=== PATIENT | male | born 1990 | race Caucasian/White ===

== ENCOUNTER → 2016-08-28 | Outpatient (REF) | payer BC | LOC: M LAB REF 16:22 | PROVIDERS: ATTEND Surgery | DX: K61.2 Anorectal abscess (principal); K61.0 Anal abscess ==

== ENCOUNTER → 2016-11-25 | Outpatient (REF) | payer BC ==
[~2016-11-25] MED LIST: CLIN150C14; EXCETAB80 PO; HYDR-3713; IBUP-1114 PO
== END ==
LOC: M SFHCPLAZ 11:41
PROVIDERS: ATTEND Family Medicine
DX: L02.215 Cutaneous abscess of perineum (principal)

== ENCOUNTER → 2017-01-06 | Outpatient (REF) | payer BC | LOC: M SFHCPLAZ 15:22 | PROVIDERS: ATTEND Family Medicine | DX: L02.215 Cutaneous abscess of perineum (principal) ==

== ENCOUNTER 2017-01-10 09:02 | Emergency (ER) | payer BC ==
[~2017-01-10] VITALS: Ht 167.6 cm; Wt 85.0 kg
[2017-01-10] MEDS ORDERED: CLIN150C14 (09:11)
[2017-01-10] MEDS ORDERED: EXCETAB80 PO (09:11)
[2017-01-10] MEDS ORDERED: IBUP-1114 PO (09:11)
[2017-01-10] MEDS ORDERED: HYDR-3713 (09:11)
[2017-01-10] MEDS ORDERED: diphenhydrAMINE INJ 50MG/ML VIAL (J1200) IV STA (10:29)
[2017-01-10] MEDS ORDERED: ONDANSETRON 4MG/2ML VIAL (J2405) IV ONE (10:30)
[2017-01-10] MEDS ORDERED: LR 1,000 ML IV ONE (10:30)
[2017-01-10] MEDS ORDERED: KETOROLAC 30 MG/ML VIAL (J1885) IV ONE (10:30)
[2017-01-10 10:36] LABS: MEAN CORPUSCULAR HGB CONC 33.9 g/dl (32.0-36.5); MEAN CORPUSCULAR VOLUME 94.4 fl (80.0-96.0); PLATELET COUNT, AUTOMATED 275 10^3/uL (150-450); RED CELL DISTRIBUTION WIDTH 11.9 % (11.5-14.5)
[2017-01-10 11:00] LABS: ALBUMIN 4.2 GM/DL (3.2-5.2); ALBUMIN/GLOBULIN RATIO 1.17 (1.00-1.93); ALKALINE PHOSPHATASE 68 U/L (45-117); ALT/SGPT 44 U/L (12-78); ANION GAP 7 MEQ/L (8-16); AST/SGOT 22 U/L (15-37); BILIRUBIN,TOTAL 0.5 MG/DL (0.2-1.0); BLOOD UREA NITROGEN 12 MG/DL (7-18); CALCIUM LEVEL 8.9 MG/DL (8.5-10.1); CARBON DIOXIDE LEVEL 30 MEQ/L (21-32); CHLORIDE LEVEL 101 MEQ/L (98-107); CREATININE FOR GFR 0.92 MG/DL (0.70-1.30); GLOMERULAR FILTRATION RATE > 60.0 (>60); GLUCOSE, FASTING 102 MG/DL (70-105); POTASSIUM SERUM 4.6 MEQ/L (3.5-5.1); SODIUM LEVEL 138 MEQ/L (136-145); TOTAL PROTEIN 7.8 GM/DL (6.4-8.2)
[2017-01-10 13:16] VITALS: BP 139/81
--- NOTE | 2017-01-10 14:47 | REP ---
CT of the brain without IV contrast: There are no comparisons. There is no hemorrhage. There is no edema, mass effect or midline shift. Ventricles are normal size and midline. Cortical stripe is unremarkable. Impression: Negative CT study of the brain. Signed by Jersey Fernandez MD 01/10/2017 11:45 A
== END 2017-01-10 13:17 | disposition home or self-care (01) ==
LOC: M ED 09:02
DX: R51 Headache (principal)
CPT/HCPCS: 70450; 80053; 83605; 85027; 87040; 96361; 96374; 96375; 99284; J1200; J1885; J2405

== ENCOUNTER → 2017-08-09 | Outpatient (CLI) | payer BC | LOC: M RAD 20:21 | DX: S49.92XA Unspecified injury of left shoulder and upper arm, initial encounter (principal); S50.02XA Contusion of left elbow, initial encounter; Y92.89 Other specified places as the place of occurrence of the external cause; Y93.89 Activity, other specified; Y99.8 Other external cause status; X58.XXXA Exposure to other specified factors, initial encounter | CPT/HCPCS: 73080 ==

== ENCOUNTER → 2018-06-29 | Outpatient (CLI) | payer OTHER ==
--- NOTE | 2018-06-29 19:04 | REP ---
Right ankle two views : There is no fracture or dislocation. Mineralization and joint spaces are normal. There are no calcifications or foreign bodies. Impression: Negative right ankle . Electronically Signed by Jersey Fernandez MD 06/29/2018 06:55 P
== END ==
LOC: M RAD 16:12
PROVIDERS: ATTEND Family Medicine
DX: K40.90 Unilateral inguinal hernia, without obstruction or gangrene, not specified as recurrent (principal); M25.571 Pain in right ankle and joints of right foot

== ENCOUNTER → 2018-07-06 | Outpatient (CLI) | payer OTHER ==
--- NOTE | 2018-07-06 11:58 | REP ---
Bilateral inguinal ultrasound for inguinal hernia: Both right and left inguinal areas are evaluated by ultrasound. Imaging is performed without and with Valsalva. There is no inguinal hernia on the right or the left. Impression: No ultrasound evidence of inguinal hernia on the right or the left. Electronically Signed by Jersey Fernandez MD 07/06/2018 11:50 A
== END ==
LOC: M RAD 08:53
PROVIDERS: ATTEND Family Medicine
DX: R10.30 Lower abdominal pain, unspecified (principal)

== ENCOUNTER → 2019-04-28 | Outpatient (CLI) | payer BC ==
--- NOTE | 2019-04-28 13:50 | REP ---
Scrotal sonography: History: Testicular pain. Findings: High-resolution bilateral scrotal sonography is performed. There is a very small left hydrocele noted incidentally. No intratesticular mass lesion is seen on either side. Right testis measures 4.3 x 2.2 x 3.0 cm. Left testicular dimensions are 4.3 x 2.5 x 3.0 cm. Normal Doppler flow is seen in both testes. Resistive indices are measured at 0.57 on the right and 0.55 on the left. Epididymal structures are unremarkable. Impression: Normal scrotal sonography. Electronically Signed by Saul Rios MD 05/02/2019 07:52 P
== END ==
LOC: M RAD 12:01
PROVIDERS: ATTEND Nurse Practitioner Women's Health
DX: N50.819 Testicular pain, unspecified (principal)

== ENCOUNTER 2019-06-09 06:41 | Emergency (ER) | payer BC ==
[~2019-06-09] VITALS: Ht 175.3 cm; Wt 67.1 kg
[2019-06-09] MEDS ORDERED: ERYT1OIN26 (06:48)
[2019-06-09] MEDS ORDERED: LIDOCAINE 1% MDV 20ML VIAL SC ONE (07:30)
[2019-06-09 07:53] LABS: BASO % 1.1 % (0.0-1.0); EOS # 0.1 10^3/uL (0.0-0.5); EOS % 2.4 % (0.0-3.0); HEMATOCRIT 41.7 % (42.0-52.0); HEMOGLOBIN 14.2 g/dl (13.5-17.5); LYMPH # 1.1 10^3/uL (1.5-5.0); MEAN CORPUSCULAR HEMOGLOBIN 33.1 pg (27.0-33.0); MEAN CORPUSCULAR HGB CONC 34.1 g/dl (32.0-36.5); MEAN CORPUSCULAR VOLUME 97.2 fl (80.0-96.0); MONO # 0.4 10^3/uL (0.0-0.8); MONO % 11.3 % (0.0-5.0); NEUTROPHILS # 2.1 10^3/uL (1.5-8.5); NEUTROPHILS % 54.9 % (36.0-66.0); PLATELET COUNT, AUTOMATED 349 10^3/uL (150-450); RED BLOOD COUNT 4.29 10^6/uL (4.30-6.10); WHITE BLOOD COUNT 3.8 10^3/uL (4.0-10.0)
--- NOTE | 2019-06-09 08:08 | REP ---
Chest x-ray: Two views. History: Abnormal breath sounds right lower lobe . Comparison study: July 10, 2013 . Findings: The lungs are well inflated and free of infiltrate. The pleural angles are sharp. The heart size is normal. Pulmonary vasculature is not increased. No significant bony abnormality is seen. Impression: Negative chest x-ray. Electronically Signed by Saul Rios MD 06/09/2019 08:00 A
[2019-06-09] MEDS ORDERED: KETOROLAC 60 MG/2 ML VIAL (J1885) IM ONE (08:15)
--- NOTE | 2019-06-09 08:18 | REP ---
CT study of the cervical spine without contrast: History: Vertebral tenderness, limited range of motion. Technique: Helical scanning is acquired and overlapping 2 mm high resolution axial images were generated and reviewed at bone and soft tissue window settings. Coronal and sagittal multiplanar re-formations images are generated. CT findings: There is no evidence of cervical spine element fracture. No skull base fracture is seen. Cervical vertebral body heights are preserved. Alignment is normal. Facet joints are normally aligned bilaterally at each cervical level on multiplanar re-formations images. There is no evidence of intraspinal or paraspinal hematoma. No extra vertebral abnormality is seen. There are biapical pulmonary parenchymal bullae. Impression: Negative CT study of the cervical spine without contrast. No fracture seen. Electronically Signed by Saul Rios MD 06/09/2019 08:10 A
[2019-06-09 08:22] VITALS: BP 130/71
[2019-06-09] MEDS ORDERED: CYCL10TA PO (08:23)
[2019-06-09] MEDS ORDERED: ACET-683 PO (08:37)
[2019-06-09] MEDS ORDERED: IBUP80TA PO (08:37)
== END 2019-06-09 08:56 | disposition home or self-care (01) ==
LOC: M ED 06:41
DX: M43.6 Torticollis (principal); R05 Cough
CPT/HCPCS: 20552; 36415; 71046; 72125; 85025; 87880; 96372; 99284; J1885

== ENCOUNTER → 2020-09-29 | Outpatient (CLI) | payer BC ==
[~2020-09-29] MED LIST changes: +ACET-683 PO; -CLIN150C14; +CLIN150C15; +CYCL-707 PO; +ERYT5OIN25; +IBUP80TA PO
--- NOTE | 2020-09-29 13:26 | REP ---
INDICATION: STRAIN OF MUSCLE, FASCIA AND TENDON AT NECK LEVEL, INIT COMPARISON: None. TECHNIQUE: AP, lateral, flexion/extension, bilateral oblique, and open-mouth views. FINDINGS: Alignment and lordosis is maintained. There is no evidence for acute fracture / compression injury or subluxation. Nonspecific age-related changes are appreciated without overt degenerative spondylosis noted. Oblique views demonstrate patent neural foramen. Open mouth view demonstrates normal C1-C2 articulation and odontoid process. IMPRESSION: Essentially age-appropriate cervical spine series. <Electronically signed by Ifeanyi Ramesh > 09/29/20 [id number]
== END ==
LOC: M LAB 12:23
PROVIDERS: ATTEND Physician Assistant
DX: S16.1XXA Strain of muscle, fascia and tendon at neck level, initial encounter (principal); X58.XXXA Exposure to other specified factors, initial encounter; Y92.89 Other specified places as the place of occurrence of the external cause; Y93.89 Activity, other specified; Y99.8 Other external cause status

== ENCOUNTER → 2021-03-12 | Outpatient (REF) | payer BC ==
[~2021-03-12] MED LIST changes: -CLIN150C15; +CLIN150C17
== END ==
LOC: M LAB REF 11:09
PROVIDERS: ATTEND Physician Assistant
DX: R50.9 Fever, unspecified (principal); R05.9 Cough, unspecified

== ENCOUNTER → 2021-06-26 | Outpatient (CLI) | payer BC | LOC: M RAD 13:23 | PROVIDERS: ATTEND Physician Assistant | DX: R07.9 Chest pain, unspecified (principal) ==

== ENCOUNTER → 2021-06-26 | Outpatient (REF) | payer BC | LOC: M LAB REF 15:04 | PROVIDERS: ATTEND Physician Assistant | DX: R50.9 Fever, unspecified (principal); R05.9 Cough, unspecified; R11.2 Nausea with vomiting, unspecified; R09.81 Nasal congestion ==

== ENCOUNTER 2021-10-05 19:23 | Emergency (ER) | payer BC ==
[~2021-10-05] VITALS: Ht 177.8 cm; Wt 68.2 kg
[2021-10-05] MEDS ORDERED: NS 1,000 ML IV ONE (21:45)
[2021-10-05 22:22] LABS: BASO % 0.7 % (0.0-1.0); EOS # 0.1 10^3/uL (0.0-0.5); EOS % 1.1 % (0.0-3.0); HEMATOCRIT 44.6 % (42.0-52.0); HEMOGLOBIN 15.2 g/dl (13.5-17.5); LYMPH # 0.9 10^3/uL (1.5-5.0); LYMPH % 16.2 % (24.0-44.0); MEAN CORPUSCULAR HGB CONC 34.1 g/dl (32.0-36.5); MEAN CORPUSCULAR VOLUME 99.8 fl (80.0-96.0); MONO # 0.9 10^3/uL (0.0-0.8); MONO % 16.3 % (2.0-8.0); NEUTROPHILS # 3.7 10^3/uL (1.5-8.5); NEUTROPHILS % 65.3 % (36.0-66.0); PLATELET COUNT, AUTOMATED 234 10^3/uL (150-450); RED BLOOD COUNT 4.47 10^6/uL (4.30-6.10); WHITE BLOOD COUNT 5.6 10^3/uL (4.0-10.0)
[2021-10-05 22:35] LABS: APPEARANCE, URINE CLEAR (CLEAR); BACTERIA, URINE AUTO NEGATIVE (NEGATIVE); BILIRUBIN, URINE AUTO NEGATIVE (NEGATIVE); BLOOD, URINE BLOOD NEGATIVE (NEGATIVE); COLOR, URINE YELLOW (YELLOW); GLUCOSE, URINE (UA) AUTO NEGATIVE (NEGATIVE); KETONE, URINE AUTO 1+ mg/dL (NEGATIVE); LEUKOCYTE ESTERASE, URINE AUTO NEGATIVE (NEGATIVE); MUCUS, URINE SMALL (NEGATIVE); NITRITE, URINE AUTO NEGATIVE (NEGATIVE); PROTEIN, URINE AUTO NEGATIVE (NEGATIVE); RBC, URINE AUTO 0 /HPF (0-3); SPECIFIC GRAVITY URINE AUTO 1.028 (1.002-1.035); SQUAMOUS EPITHELIAL CELL UR AU 0 /HPF (0-6); WBC, URINE AUTO 0 /HPF (0-3)
[2021-10-05] MEDS ORDERED: ISOVUE-370 76% 100ML VIAL As Ordered ONE (22:43)
[2021-10-05 23:00] LABS: AMPHETAMINES LEVEL URINE NEGATIVE (NEGATIVE); BARBITURATES URINE NEGATIVE (NEGATIVE); BENZODIAZEPINES URINE NEGATIVE (NEGATIVE); CANNABINOIDS URINE POSITIVE (NEGATIVE); COCAINE METABOLITE URINE NEGATIVE (NEGATIVE); METHADONE URINE NEGATIVE (NEGATIVE); OPIATES URINE POSITIVE (NEGATIVE); PHENCYCLIDINE URINE NEGATIVE (NEGATIVE)
[2021-10-05 23:07] LABS: ALBUMIN 4.4 GM/DL (3.2-5.2); BILIRUBIN,DIRECT 0.2 MG/DL (0.0-0.2); BILIRUBIN,TOTAL 0.9 MG/DL (0.2-1.0); TOTAL PROTEIN 7.9 GM/DL (6.4-8.2)
[2021-10-06 00:58] VITALS: BP 136/85
== END 2021-10-06 01:02 | disposition home or self-care (01) ==
LOC: M ED 19:23
DX: S80.11XA Contusion of right lower leg, initial encounter (principal); S80.211A Abrasion, right knee, initial encounter; S80.212A Abrasion, left knee, initial encounter; S90.32XA Contusion of left foot, initial encounter; S60.212A Contusion of left wrist, initial encounter; S50.02XA Contusion of left elbow, initial encounter; S70.12XA Contusion of left thigh, initial encounter; Y04.8XXA Assault by other bodily force, initial encounter; Y07.9 Unspecified perpetrator of maltreatment and neglect; Y92.89 Other specified places as the place of occurrence of the external cause; R78.9 Finding of unspecified substance, not normally found in blood
CPT/HCPCS: 71260; 74177; 80047; 80076; 80307; 81001; 83690; 85025; 96360; 96361; 99284; Q9967

== ENCOUNTER 2021-11-22 21:55 | Emergency (ER) | payer BC ==
[~2021-11-22] VITALS: Ht 177.8 cm; Wt 68.2 kg
[2021-11-22] MEDS ORDERED: NS 1,000 ML IV ONE ×2 (22:05→23:45)
[2021-11-22] MEDS ORDERED: HALOPERIDOL 5MG/ML VIAL (J1630 PER 1) IM STA (22:06)
[2021-11-22] MEDS ORDERED: LORazepam 2 MG/ML VIAL IV STA ×2 (22:06→22:25)
[2021-11-22 22:14] LABS: BASO # 0.1 10^3/uL (0.0-0.2); BASO % 1.1 % (0.0-1.0); EOS % 0.1 % (0.0-3.0); HEMATOCRIT 49.2 % (42.0-52.0); HEMOGLOBIN 16.4 g/dl (13.5-17.5); LYMPH # 3.9 10^3/uL (1.5-5.0); LYMPH % 42.1 % (24.0-44.0); MEAN CORPUSCULAR HEMOGLOBIN 33.5 pg (27.0-33.0); MEAN CORPUSCULAR HGB CONC 33.3 g/dl (32.0-36.5); MEAN CORPUSCULAR VOLUME 100.4 fl (80.0-96.0); MONO # 0.7 10^3/uL (0.0-0.8); MONO % 7.7 % (2.0-8.0); NEUTROPHILS # 4.6 10^3/uL (1.5-8.5); NEUTROPHILS % 48.9 % (36.0-66.0); PLATELET COUNT, AUTOMATED 396 10^3/uL (150-450); WHITE BLOOD COUNT 9.3 10^3/uL (4.0-10.0)
[2021-11-22 23:04] LABS: ACETAMINOPHEN LEVEL < 2.0 UG/ML (10.0-30.0); ALBUMIN 4.6 GM/DL (3.2-5.2); ALT/SGPT 22 U/L (12-78); BILIRUBIN,DIRECT < 0.1 MG/DL (0.0-0.2); BILIRUBIN,TOTAL 0.2 MG/DL (0.2-1.0); BLOOD UREA NITROGEN 14 MG/DL (7-18); CALCIUM LEVEL 9.3 MG/DL (8.5-10.1); CARBON DIOXIDE LEVEL 26 MEQ/L (21-32); CHLORIDE LEVEL 108 MEQ/L (98-107); CREATININE FOR GFR 1.16 MG/DL (0.70-1.30); GLOMERULAR FILTRATION RATE > 60.0 (>60); GLUCOSE, FASTING 120 MG/DL (70-100); POTASSIUM SERUM 4.6 MEQ/L (3.5-5.1); SALICYLATE LEVEL < 1.7 MG/DL (5.0-30.0); SODIUM LEVEL 142 MEQ/L (136-145); THYROID STIMULATING HORMONE 0.227 uIU/ML (0.358-3.740); TOTAL PROTEIN 8.3 GM/DL (6.4-8.2)
[2021-11-22 23:44] LABS: AMPHETAMINES LEVEL URINE NEGATIVE (NEGATIVE); BARBITURATES URINE NEGATIVE (NEGATIVE); BENZODIAZEPINES URINE NEGATIVE (NEGATIVE); CANNABINOIDS URINE POSITIVE (NEGATIVE); COCAINE METABOLITE URINE NEGATIVE (NEGATIVE); METHADONE URINE NEGATIVE (NEGATIVE); OPIATES URINE NEGATIVE (NEGATIVE); PHENCYCLIDINE URINE NEGATIVE (NEGATIVE)
[2021-11-22] MEDS ORDERED: MULTIVITAMIN -ADULT INJECTION 10 ML, THIAMINE INJection 100 MG, FOLIC ACID 1 MG in NS 1... IV ONE (23:45)
[2021-11-23 10:45] VITALS: BP 167/71
[2021-11-23] MEDS ORDERED: LORazepam 2 MG TAB PO PRN (10:45)
[2021-11-23] MEDS ORDERED: THIAMINE 100 MG TAB PO SCH (21:00)
[2021-11-24] MEDS ORDERED: MULTIVITAMINS/MINERALS THERAP 1 TAB PO SCH (09:00)
[2021-11-24] MEDS ORDERED: FOLIC ACID 1MG TAB PO SCH (09:00)
== END 2021-11-23 15:36 | disposition home or self-care (01) ==
LOC: M ED 11-23 01:00
DX: F10.229 Alcohol dependence with intoxication, unspecified (principal); S00.81XA Abrasion of other part of head, initial encounter; X58.XXXA Exposure to other specified factors, initial encounter; Y92.89 Other specified places as the place of occurrence of the external cause
CPT/HCPCS: 70450; 70486; 72125; 80048; 80076; 80143; 80307; 82077; 82550; 84443; 85025; 93005; 93041; 94760; 96361; 96372; 96374; 99285; J1630; J2060; J3411

== ENCOUNTER → 2021-12-29 | Outpatient (CLI) | payer BC | LOC: M OUTALCOH 07:49 | PROVIDERS: ATTEND Psychiatry & Neurology Psychiatry | DX: Z13.30 Encounter for screening examination for mental health and behavioral disorders, unspecified (principal) ==

== ENCOUNTER 2022-01-13 16:00 | Outpatient (RCR) | payer BC | END 2022-01-19 | LOC: M OUTALCOH 16:00 | PROVIDERS: ATTEND Psychiatry & Neurology Psychiatry | DX: F10.20 Alcohol dependence, uncomplicated (principal); Z72.0 Tobacco use ==

== ENCOUNTER 2022-02-17 15:56 | Outpatient (RCR) | payer BC | END 2022-02-18 | LOC: M OUTALCOH 15:56 | PROVIDERS: ATTEND Psychiatry & Neurology Psychiatry | DX: F10.20 Alcohol dependence, uncomplicated (principal); Z72.0 Tobacco use ==

== ENCOUNTER 2022-03-20 10:00 | Outpatient (RCR) | payer BC | END 2022-03-21 | LOC: M OUTALCOH 10:00 | PROVIDERS: ATTEND Psychiatry & Neurology Psychiatry | DX: F10.20 Alcohol dependence, uncomplicated (principal); Z72.0 Tobacco use ==

== ENCOUNTER 2022-04-20 16:00 | Outpatient (RCR) | payer BC | END 2022-04-21 | LOC: M OUTALCOH 16:00 | PROVIDERS: ATTEND Psychiatry & Neurology Psychiatry | DX: F10.20 Alcohol dependence, uncomplicated (principal); Z72.0 Tobacco use ==

== ENCOUNTER 2022-05-18 16:00 | Outpatient (RCR) | payer BC | END 2022-05-19 | LOC: M OUTALCOH 16:00 | PROVIDERS: ATTEND Psychiatry & Neurology Psychiatry | DX: F10.20 Alcohol dependence, uncomplicated (principal); Z72.0 Tobacco use ==

== ENCOUNTER 2022-05-28 15:53 | Outpatient (RCR) | payer BC, OTHER | END 2022-06-19 | LOC: M OUTALCOH 15:53 | PROVIDERS: ATTEND Psychiatry & Neurology Psychiatry | DX: F10.20 Alcohol dependence, uncomplicated (principal); Z72.0 Tobacco use ==

== ENCOUNTER 2023-09-17 11:03 | Emergency (ER) | payer BC, OTHER ==
[~2023-09-17] VITALS: Ht 175.3 cm; Wt 73.9 kg
[2023-09-17 11:41] LABS: BASO # 0.1 10^3/uL (0.0-0.2); BASO % 0.7 % (0.0-1.0); EOS % 0.1 % (0.0-3.0); HEMOGLOBIN 15.5 g/dl (13.5-17.5); LYMPH # 0.8 10^3/uL (1.5-5.0); LYMPH % 11.2 % (24.0-44.0); MEAN CORPUSCULAR HEMOGLOBIN 33.9 pg (27.0-33.0); MEAN CORPUSCULAR HGB CONC 34.4 g/dl (32.0-36.5); MEAN CORPUSCULAR VOLUME 98.5 fl (80.0-96.0); MONO # 0.5 10^3/uL (0.0-0.8); MONO % 6.8 % (2.0-8.0); NEUTROPHILS # 6.1 10^3/uL (1.5-8.5); NEUTROPHILS % 80.9 % (36.0-66.0); PLATELET COUNT, AUTOMATED 288 10^3/uL (150-450); RED BLOOD COUNT 4.57 10^6/uL (4.30-6.10); WHITE BLOOD COUNT 7.5 10^3/uL (4.0-10.0)
[2023-09-17 11:54] LABS: INR 0.96; PARTIAL THROMBOPLASTIN TIME 27.6 SECONDS (24.8-34.2); PROTHROMBIN TIME 12.5 SECONDS (12.5-14.5)
[2023-09-17 12:35] LABS: ALBUMIN 4.5 G/DL (3.2-5.2); ALKALINE PHOSPHATASE 66 U/L (46-116); ALT/SGPT 31 U/L (7.0-40); AST/SGOT 34 U/L (<34); BILIRUBIN,DIRECT 0.2 MG/DL (<0.4); BLOOD UREA NITROGEN 9 MG/DL (9-23); CALCIUM LEVEL 9.6 MG/DL (8.5-10.1); CARBON DIOXIDE LEVEL 28 MMOL/L (20-31); CHLORIDE LEVEL 100 MMOL/L (98-107); CK-MB VALUE MASS 1.1 NG/ML (<3.6); CPK CREATINE PHOSPHOKINASE 248 U/L (46-171); GLOMERULAR FILTRATION RATE > 60.0 (>60); GLUCOSE, FASTING 108 MG/DL (60-100); MB/CK RELATIVE INDEX 0.44 (< OR =4); POTASSIUM SERUM 4.6 MMOL/L (3.5-5.1); SODIUM LEVEL 135 MMOL/L (136-145); TOTAL PROTEIN 7.4 G/DL (5.7-8.2)
[2023-09-17 13:14] LABS: CK-MB VALUE MASS < 1.0 NG/ML (<3.6)
[2023-09-17 13:15] LABS: CPK CREATINE PHOSPHOKINASE 240 U/L (46-171); MB/CK RELATIVE INDEX 0.41 (< OR =4)
[2023-09-17 13:27] LABS: MAGNESIUM LEVEL 1.7 MG/DL (1.8-2.4)
[2023-09-17] MEDS ORDERED: ISOVUE-370 76% 100ML VIAL As Ordered ONE (13:31)
[2023-09-17 15:35] VITALS: BP 135/78; TEMP 97.1; O2SAT 99
== END 2023-09-17 15:37 | disposition home or self-care (01) ==
LOC: M ED 11:03
DX: R07.89 Other chest pain (principal)
CPT/HCPCS: 71045; 71275; 74174; 80048; 80076; 82550; 82553; 83735; 84484; 85025; 85610; 85730; 93005; 93041; 94760; 99284; Q9967

== ENCOUNTER → 2023-10-21 | Outpatient (REF) | payer BC ==
[2023-10-21 17:57] LABS: Trichomonas vaginalis (AMP) NOT DETECTED (NEGATIVE)
[2023-10-21 18:21] LABS: GC DNA AMPLIFICATION NEGATIVE (NEGATIVE)
== END ==
LOC: M LAB REF 16:11
PROVIDERS: ATTEND Physician Assistant
DX: Z20.2 Contact with and (suspected) exposure to infections with a predominantly sexual mode of transmission (principal)

== ENCOUNTER 2023-10-30 01:29 | Emergency (ER) | payer BC ==
[2023-10-30 02:58] LABS: HEMATOCRIT 47.8 % (42.0-52.0); HEMOGLOBIN 16.6 g/dl (13.5-17.5); MEAN CORPUSCULAR HEMOGLOBIN 34.1 pg (27.0-33.0); MEAN CORPUSCULAR HGB CONC 34.7 g/dl (32.0-36.5); MEAN CORPUSCULAR VOLUME 98.2 fl (80.0-96.0); RED BLOOD COUNT 4.87 10^6/uL (4.30-6.10); WHITE BLOOD COUNT 15.9 10^3/uL (4.0-10.0)
[2023-10-30 02:59] LABS: PLATELET COUNT, AUTOMATED 397 10^3/uL (150-450)
[2023-10-30 03:05] LABS: ALBUMIN 4.8 G/DL (3.2-5.2); ALKALINE PHOSPHATASE 91 U/L (46-116); ALT/SGPT 36 U/L (7.0-40); AST/SGOT 43 U/L (<34); BILIRUBIN,DIRECT 0.1 MG/DL (<0.4); BILIRUBIN,TOTAL 0.4 MG/DL (0.3-1.2); BLOOD UREA NITROGEN 10 MG/DL (9-23); CALCIUM LEVEL 8.9 MG/DL (8.5-10.1); CARBON DIOXIDE LEVEL 22 MMOL/L (20-31); CHLORIDE LEVEL 105 MMOL/L (98-107); CREATININE FOR GFR 1.07 MG/DL (0.70-1.30); GLOMERULAR FILTRATION RATE > 60.0 (>60); GLUCOSE, FASTING 150 MG/DL (60-100); SALICYLATE LEVEL < 3.0 MG/DL (<30); SODIUM LEVEL 139 MMOL/L (136-145); TOTAL PROTEIN 8.4 G/DL (5.7-8.2)
[2023-10-30 03:07] LABS: THYROID STIMULATING HORMONE 0.606 uIU/ML (0.55-4.78)
[2023-10-30] MEDS ORDERED: HOME MED LIST COMPLETE! XX SCH (03:20)
[2023-10-30 05:31] VITALS: BP 138/87; TEMP 97.9; O2SAT 98
== END 2023-10-30 05:33 | disposition home or self-care (01) ==
LOC: M ED 01:29
DX: F10.129 Alcohol abuse with intoxication, unspecified (principal)

== ENCOUNTER → 2023-11-01 | Outpatient (CLI) | payer BC | LOC: M OUTALCOH 08:25 | PROVIDERS: ATTEND Psychiatry & Neurology Psychiatry | DX: Z03.89 Encounter for observation for other suspected diseases and conditions ruled out (principal); Z72.0 Tobacco use ==

== ENCOUNTER 2023-11-10 14:56 | Outpatient (RCR) | payer BC | END 2023-11-20 | LOC: M OUTALCOH 14:56 | PROVIDERS: ATTEND Psychiatry & Neurology Psychiatry | DX: F10.20 Alcohol dependence, uncomplicated (principal); Z72.0 Tobacco use ==

== ENCOUNTER → 2024-10-05 | Outpatient (CLI) | payer BC | LOC: M WUC 10:38 | PROVIDERS: ATTEND Nurse Practitioner Family | DX: M25.511 Pain in right shoulder (principal); M25.531 Pain in right wrist; V28.01XA Electric (assisted) bicycle driver injured in noncollision transport accident in nontraffic accident, initial encounter; Y93.9 Activity, unspecified; Y92.9 Unspecified place or not applicable ==

== ENCOUNTER → 2024-10-06 | Outpatient (CLI) | payer BC | LOC: M RAD 09:28 | PROVIDERS: ATTEND Physician Assistant Surgical | DX: S40.011A Contusion of right shoulder, initial encounter (principal); S42.291A Other displaced fracture of upper end of right humerus, initial encounter for closed fracture; X58.XXXA Exposure to other specified factors, initial encounter; Y92.9 Unspecified place or not applicable; Y93.9 Activity, unspecified; Y99.9 Unspecified external cause status ==

== ENCOUNTER → 2024-11-15 | Outpatient (CLI) | payer BC | LOC: M OUTALCOH 09:54 | PROVIDERS: ATTEND Psychiatry & Neurology Psychiatry | DX: Z03.89 Encounter for observation for other suspected diseases and conditions ruled out (principal); Z72.0 Tobacco use ==

== ENCOUNTER → 2024-11-23 | Outpatient (CLI) | payer BC | LOC: M WUC 13:17 | PROVIDERS: ATTEND Student in an Organized Health Care Education/Training Program | DX: M25.561 Pain in right knee (principal) ==

== ENCOUNTER 2024-11-24 08:01 | Outpatient (RCR) | payer BC | END 2024-12-19 | LOC: M OUTALCOH 08:01 | PROVIDERS: ATTEND Psychiatry & Neurology Psychiatry | DX: F10.20 Alcohol dependence, uncomplicated (principal); Z72.0 Tobacco use ==

== ENCOUNTER → 2025-01-24 | Outpatient (CLI) | payer BC | LOC: M OUTALCOH 08:18 | PROVIDERS: ATTEND Psychiatry & Neurology Psychiatry | DX: F10.10 Alcohol abuse, uncomplicated (principal) ==